=== PATIENT | male | born 1960 | race African-American/Black ===

== ENCOUNTER 2022-09-17 11:08 | Outpatient (CLI) | payer MEDICAID, SELFPAY ==
--- NOTE | ~2022-09-17 | US_ITS ---
EXAMINATION: US right upper quadrant DATE: 09/17/2022 11:51 INDICATION: Liver disease. TECHNIQUE: Multiple grayscale and Doppler ultrasound images of the abdomen were obtained. COMPARISON: None FINDINGS: The visualized portions of the head, body, and tail of the pancreas are normal. The liver i s normal without focal lesion. There is normal flow in main portal vein. The gallbladder is normal in size and contains sludge. No gallstones. No gallbladder wall thickening or sonographic Allison sign. The common duct is normal and measures 6 mm. IMPRESSION: 1. Gallbladder sludge. No evidence of acute cholecystitis. 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
== END 2022-09-17 11:09 | disposition home or self-care (01) ==
LOC: ANHIMG 11:14
PROVIDERS: Visit Provider Family Medicine
DX: K76.9 Liver disease, unspecified (principal)
CPT/HCPCS: 76705

== ENCOUNTER 2022-10-07 11:08 | Outpatient (CLI) | payer OTHER, SELFPAY ==
--- NOTE | ~2022-10-07 | CT_ITS ---
EXAMINATION: CT diagnostic chest wo con DATE: 10/07/2022 11:32 INDICATION: Right lung nodule TECHNIQUE: Computed tomography (CT) of the chest was performed without intravenous contrast. Automate d exposure control and iterative reconstruction technique were employed. Exam dose: 73.67 mGy-cm tot al exam DLP. COMPARISON: None FINDINGS: There is discoid atelectasis or more likely chronic discoid scarring in the lateral segment of the middle lobe and anterolateral basilar right lower lobe and anterior left lower lobe. Mild to moderate emphysematous changes of the lungs. No pulmonary infiltrate or consolidation or pulmonary mass lesion is evident. Annual CT lung screenin g is recommended. Calcified right paratracheal, right hilar and subcarinal nodes, calcified middle lobe granuloma and h epatic and splenic calcified granulomas, consistent with old granulomatous disease. No hilar or mediastinal mass lesion or lymphadenopathy. No thoracic aortic aneurysm. Normal heart size. Thoracic aortic, great vessel and coronary artery calcifications. No pericardial o r pleural effusion. Very small sliding hiatal hernia. Normal morphology of the adrenal glands. Severe degenerative disc disease at C6-7. No suspicious osteolytic or osteoblastic lesions are noted. Multiple old left rib fractures. IMPRESSION: Mild to moderate emphysema Bilateral probable discoid scarring; annual CT lung screening is recommended Old granulomatous disease Multiple old left rib fractures Reviewed, dictated and finalized at [facility]. Reviewed, dictated and finalized at location B. [facility]
== END 2022-10-07 11:09 | disposition home or self-care (01) ==
PROVIDERS: PCP Family Medicine; Visit Provider Family Medicine
DX: R91.1 Solitary pulmonary nodule (principal); J43.9 Emphysema, unspecified; R91.8 Other nonspecific abnormal finding of lung field; Z87.81 Personal history of (healed) traumatic fracture
CPT/HCPCS: 71250